=== PATIENT | male | born 1945 | race Caucasian/White ===

== ENCOUNTER 2023-10-20 14:14 | Emergency (ER) | payer MEDICARE, SELFPAY ==
[2023-10-20 14:17] VITALS: BP 154/97; PULSE 80; TEMP 36.8; O2SAT 98; BMI 35.6
--- NOTE | 2023-10-20 14:58 | ED_ITS ---
HPI - Skin/Abscess/Foreign Bdy General Chief complaint: Skin/Abscess/Foreign Body Stated complaint: LACERATION Time Seen by Provider: 10/20/23 14:23 Source: patient and family Mode of arrival: Wheelchair Limitations: no limitations History of Present Illness HPI narrative: 78-year-old male presents to the emergency department with with complaint of bleeding from varicose vein. Locates to his left lower extremity. States he accidentally scratched the area prior to onset of the bleeding. Noted blood to be spurting of 3 to 4 inches in the air. Has had history of similar problem about a year ago. Unsure of last tetanus shot. Denies any pain, tenderness. Currently, bleeding controlled. Quality:?As above Severity:?Mild Timing:?As above, improved Context: Normal setting and activity? Modifying factors:?None Associated symptoms: as above Related Data Allergies Allergy/AdvReac Type Severity Reaction Status Date / Time morphine Allergy Severe Anaphylaxis Verified 10/20/23 14:26 Review of Systems ROS Narrative CONST: Denies diaphoresis, weakness MS: Denies arthralgias, myalgias SKIN:? +wound.? Denies swelling NEURO: Denies weakness, numbness, paresthesias Heme: Patient is on Eliquis Exam Narrative Exam Narrative: Vital signs noted Nurses notes reviewed CONST: Nontoxic, well appearing, well nourished, in no distress.? No diaphoresis.?? HENT: normocephalic, atraumatic, CV: 2+ palpable left DP pulse MS: Left leg: Patient has wound, not actively bleeding to the anterior, distal tibia region. ? No tenderness to the leg.? No swelling, ecchymosis, discoloration, crepitus, deformity, instability, warmth.? Strength 5/5 NEURO: Sensory intact throughout and distal to the injury SKIN: + wound PSYCHIATRIC: normal mood, affect Constitutional Vital Signs, click to edit/add: Last Vital Signs Temp 98.2 F 10/20/23 14:17 Pulse 80 10/20/23 14:17 Resp 18 10/20/23 14:17 BP 154/97 H 10/20/23 14:17 Pulse Ox 98 10/20/23 14:17 O2 Del Method Room Air 10/20/23 14:17 Course Vital Signs Vital signs: Vital Signs Temperature 98.2 F 10/20/23 14:17 Pulse Rate 80 10/20/23 14:17 Respiratory Rate 18 10/20/23 14:17 Blood Pressure 154/97 H 10/20/23 14:17 Pulse Oximetry 98 10/20/23 14:17 Oxygen Delivery Method Room Air 10/20/23 14:17 Temperature 98.2 F 10/20/23 14:17 Pulse Rate 80 10/20/23 14:17 Respiratory Rate 18 10/20/23 14:17 Blood Pressure 154/97 H 10/20/23 14:17 Pulse Oximetry 98 10/20/23 14:17 Oxygen Delivery Method Room Air 10/20/23 14:17 MDM - Skin/Abscess/Foreign Bdy MDM Narrative Medical decision making narrative: This is a pleasant 78-year-old male who presented to the emergency department for evaluation of bleeding from varicose vein. Incident started after he scratched the area this morning. He has currently been able to control the bleeding with compression dressings. Was advised to be evaluated by his provider. He is on Eliquis On arrival, afebrile, vital signs are stable. Exam, nontoxic, well-appearing patient in no distress. He has a wound noted to the distal anterior tibia region. Bleeding controlled at present. Neurovascularly intact. No motor deficits. Area was irrigated, cleansed and multiple layers of Dermabond applied. Hemostasis continue to remain present. Tetanus was updated during visit Favor bleeding from varicose vein Foreign body, deep structure involvement less likely based on history and physical exam Disposition ? The patient was discharged. Plan: Patient will be discharged to home. Condition at time of disposition: stable ? Advised to follow up with primary provider. Advised to return for any worsening and/or development of new, concerning signs or symptoms PLEASE NOTE: Portions of the medical record may have been produced using electronic ekg/ecg technician and may contain errors with respect to translation of words which may not have been identified prior to finalization of the chart. Medical Records Attestation: I reviewed the patient's medical records. 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
--- NOTE | 2023-10-20 14:59 | PC.NURSE ---
dressing removed and area bleeding has resolved. area cleansed with sterile saline and skin adhesive applied to site by PA at bedside.
[2023-10-20] MEDS: ADACEL DIPH,PERTUSS(ACELL),TET VAC/PF 0.5 ML ADULT SYRINGE IM (15:18)
== END 2023-10-20 15:27 | disposition home or self-care (01) ==
PROVIDERS: Emergency Provider Emergency Medicine; PCP Family Medicine
DX: I83.892 Varicose veins of left lower extremity with other complications (principal); S81.802A Unspecified open wound, left lower leg, initial encounter; Z23 Encounter for immunization; X58.XXXA Exposure to other specified factors, initial encounter
CPT/HCPCS: 12001; 90471; 90715; 99283

== ENCOUNTER 2024-08-24 12:01 | Outpatient (OUT) | payer MEDICARE, SELFPAY ==
[2024-08-24 12:55] LABS: Estimated Average Glucose 123 mg/dL; Glycohemoglobin A1C 5.9 % (4.5-6.2)
[2024-08-24 13:00] LABS: Alanine Aminotransferase 17 U/L (16-63); Albumin Globulin Ratio 1.1; Alkaline Phosphatase 61 U/L (46-116); Aspartate Amino Transferase 18 U/L (15-37); BUN Creatinine Ratio 22.3; Bilirubin Total 1.5 mg/dL (0.2-1.0); Calcium 9.4 mg/dL (8.5-10.1); Chloride 102 mmol/L (98-107); Cholesterol 110 mg/dL (<=200); Estimated GFR (African America >60 (>=60 mL/min/1.73m^2); Estimated GFR (Non-African Ame >60 (>=60 mL/min/1.73m^2); Globulin 3.7 g/dL; Glucose 111 mg/dL (74-106); HDL Cholesterol 54 mg/dL (40-60); Sodium 139 mmol/L (136-145); Total Protein 7.7 g/dL (6.4-8.2); Triglycerides 50 mg/dL (<=150)
== END 2024-08-24 12:02 | disposition home or self-care (01) ==
LOC: LAB 12:06
PROVIDERS: PCP Family Medicine; Visit Provider Family Medicine
DX: E78.2 Mixed hyperlipidemia (principal); I10 Essential (primary) hypertension; R73.02 Impaired glucose tolerance (oral)
CPT/HCPCS: 36415; 80053; 80061; 83036

== ENCOUNTER 2024-10-10 11:26 | Emergency (ER) | payer MEDICARE, SELFPAY ==
--- OUTSIDE RECORDS SUMMARY | 2024-09-26 14:15 | XMS_ITS | Encounter Summary ---
Author Organization [facility] Address [address] [place] [address] Care Team Providers Care Thoroughbred Horse Farm Manager Name Role Phone Humberto Holley MD Primary Care Provider [phone] Reason for Visit * Reason Comments Nail care Jaime Ramsey is a 79 y.o. male who presents for Toenail Care. Patient relates he has started wearing compression socks as recommended. Encounter Details Date Type Department Care Team (Latest Contact Info) Description 09/26/2024 2:15 PM EDT Procedure Visit [facility] [address] [place] [id number] Choco Ace, DPJeff [address] [place], [place] [id number] Dermatophytosis of nail (Primary Dx); Dystrophic nail; Pain around toenail, right foot; Pain around toenail, left foot Social History Tobacco Use Types Packs/Day Years Used Date Smoking Tobacco: Former Cigarettes 0.5 13.5 1 04/13/1965 - 08/11/1979 Smokeless Tobacco: Current Chew Alcohol Use Standard Drinks/Week Comments Never 0 (1 standard drink = 0.6 oz pur e alcohol) Sex and Gender Information Value Date Recorded Sex Assigned at Not on file Legal Sex Male 6:52 PM EDT Gender Identity Not on file Sexual Orientation Not on file documented as of this encounter Last Filed Vital Signs Vital Sign Reading Time Taken Comments Blood Pressure - - Pulse - - Temperature - - Respiratory Rate - - Oxygen Saturation - - Inhaled Oxygen Concentration - - Weight 122 kg (268 lb) 09/26/2024 2:10 PM EDT Height 180.3 cm (5' 11 ) 09/26/2024 2:10 PM EDT Body Mass Index 37.38 09/26/2024 2:10 PM EDT documented in this encounter Patient Instructions * Patient Instructions* Choco Ace DPM - 09/26/2024 2:15 PM EDT As noted documented in this encounter Progress Notes * Choco Ace DPM - 09/26/2024 2:15 PM EDT Images from the original note were not included. Subjective Patient ID: Jaime Ramsey is a 79 y.o. male who presents for Nail care ( Jaime Ramsey is a 79 y.o. male who presents for Toenail Care. Patient relates he has started wearing compression socks as recommended. ). HPI Chief complaint: Toenail deformity and discoloration. Relates longstanding toenail deformity of multiple years duration. Identifies multiple digits. Problematic/symptomatic over the past several weeks or so, again describing pressure discomfort with footwear; in spite of known peripheral neuropathy. Also complains of progressive catching and snagging on clothing, bed sheets etc.. Denies bleeding or drainage. Self care measures are difficult, ineffective and not practical; recently cutting his toe; increasing risk exposure. Family members unable to provide effective care. Palliative care measures provide favorable transient symptom relief. Risk factors: Medical comorbidities. Idiopathic peripheral neuropathy. Eliquis therapy. Visual impairment. Mobility, flexibility and dexterity restraints. Toenail deformity. Digital and/or shoe trauma and related complications. Patient also well satisfied with compression sock therapy. Medications Current Outpatient Medications: Eliquis 5 MG tablet, Take 5 mg by mouth in the morning and 5 mg before bedtime., Disp: , Rfl: hydroCHLOROthiazide (HYDRODiuril) 25 MG tablet, Take 25 mg by mouth Daily, Disp: , Rfl: lovastatin (Mevacor) 10 MG tablet, Take 10 mg by mouth Daily, Disp: , Rfl: olmesartan (BENIcar) 40 MG tablet, Take 40 mg by mouth Daily, Disp: , Rfl: Allergies Morphine Past Surgical History Past Surgical History: Procedure Laterality Date CT GUIDED RADIOFREQUENCY ABLATION 2016 cardiac ablation JOINT REPLACEMENT Knee Replacements Family History Family History Problem Relation Name Age of Onset Early natural Mother Kirk Bland Objective General Examination: GENERAL APPEARANCE: Alert and oriented. Pleasant disposition. Wearing Skechers slip-on footwear. Heis grieving the recent passing of the spouse. Vascular: DORSALIS PEDIS PULSE: bilaterally, 2/4 . POSTERIOR TIBIAL PULSE: bilaterally, 1/4 . TEMPERATURE GRADIENT: warm to slightly cool. EDEMA: Mild, non-pitting edema both ankles. Brawny, with stasis pigmentation and dermatosis; without active dermatitis. CALF: supple, nontender, bilateral. CAPILLARY FILLING TIME(sec): capillary fill intact bilateral digits less than 3 secs . Neurologic: MUSCLE POWER: No focal deficits. TINELS SIGN: Negative along the tarsal canal. SHARP SENSATION: Tactile and soft touch sensation compromised over the digital areas. SEMMES-TERESITA 5.07 MONOFILAMENT: Unable to localize over the digital areas. Intact localization over the forefoot, midfoot and heel areas bilateral. Dermatologic: SKIN FINDINGS: Intact. Skin turgor is fair. HYPERTROPHIC LESION: Prominent pinch callus lesion along the distal medial aspect of the left greattoenail. Non-inflamed, without ulcerative changes. 2nd digit left foot: Non-inflamed distal HD lesion, without ulcerative changes. NAIL PATHOLOGY: All digits: None are spared: Gross toenail dystrophy, hypertrophy, thickening, elongation, discoloration, clubbing, crumbly texture, subtotal detachment, periungual hyperkeratosis; without drainage. Total with debris: Essentially all digits. Left great toe: Sarabjit's horn toenail deformity by history. INTERDIGITAL MACERATION: Clean, dry, non-inflamed. ULCER: no sign of ulceration or open wound . ABSCESS: . SKIN PATHOLOGY: texture, turgor, hair growth, within normal limits. Ankle / Foot: INSPECTION: Stance assessment: Symmetrical, fairly rectus cavus foot structure. Rigid contracture of multiple digits. RANGE OF MOTION: Demonstrates functional ankle, subtalar and MTP joint range of motion. 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 Chronic venous insufficiency with chronic stasis dermatosis. Idiopathic peripheral neuropathy. Lumbar radiculopathy? Plan: Patient remains well satisfied with conservative and palliative care measures. Encourage compliance with compression sock therapy. Continue Amlactin lotion daily to lower extremities and feet. Hygiene and skin care measures discussed. Continue crest pad therapy left foot as needed Procedure: Toenail debridement: Aseptic technique: Hand and power instrumentation: Onychodebridement in length and thickness, with curettage of any cryptotic margins, all periungual debris; providingeffective symptom and pressure relief; reducing shoe and digital trauma. This note was created with the assistance of a speech recognition program. While intending to generate a timely document that accurately reflects the content of the visit, no guarantee can be provided that every grammatical or spelling mistake has been or will be identified or corrected. Thank you for your understanding. Choco Ace DPM documented in this encounter Plan of Treatment Upcoming Encounters Date Type Department Care Team (Late st Contact Info) Description 01/09/2025 2:15 PM EDT Procedure Visit [facility] [address] [place] [address] Choco Ace DPM [address] [place], [place] [id number] documented as of this encounter Visit Diagnoses Diagnosis Dermatophytosis of nail- Primary Dystrophic nail Other specified disease of nail Pain around toenail, right foot Pain around toenail, left foot documented in this encounter Care Teams Thoroughbred Horse Farm Manager Relationship Specialty Start Date End Date Humberto Holley MD [address] [facility] [place] [address] PCP - General Family Medicine 09/26/24 documented as of this encounter
--- OUTSIDE RECORDS SUMMARY | 2024-10-10 11:31 | XMS_ITS | Encounter Summary ---
Author Organization [facility] Address [id number] [address] [place] [address] Care Team Providers Care Tractor Mechanic Apprentice Name Role Phone YulisaHumberto shipman Kai ROSS Primary Care Provider [phone] Encounter Details Date Type Department Care Team (Late st Contact Info) Description 08/12/2022 Orders Only [facility] - Family Medicine [address] [place] [address] External, Scanning Provider Social History Tobacco Use Types Packs/Day Years Used Date Smoking Tobacco: Former Smokeless Tobacco: Current Chew Alcohol Use Standard Drinks/Week Comments Not Currently 0 (1 standard drink = 0.6 oz pur e alcohol) Social Connection and Isolat ion Panel [NHANES] Answer Date Recorded In a typical week, how many times do you talk on the phone with family, friends, or neighbors? More than three times a week 03/23/2022 How often do you get togethe r with friends or relatives? More than three times a week 03/23/2022 How often do you attend chur ch or mosque services? Never 03/23/2022 Do you belong to any clubs o r organizations such as samaritan groups, unions, fraternal or athletic groups, or school groups? Yes 03/23/2022 How often do you attend meet ings of the clubs or organizations you belong to? More than 4 times per year 03/23/2022 Are you , , di vorced, , never , or living with a partner? 03/23/2022 AUDIT-C Answer Date Recorded Q1: How often do you have a drink containing alc ohol? Monthly or less 03/23/2022 Q2: How many drinks containi ng alcohol do you have on a typical day when you are drinking? 1 or 2 03/23/2022 Q3: How often do you have si x or more drinks on one occasion? Never 03/23/2022 Overall Financial Resource Strain (CARDIA) Answe r Date Recorded How hard is it for you to pa y for the very basics like food, housing, medical care, and heating? Not hard at all 03/26/2022 PHQ-2 Answer Date Recorded Total Score 2 06/12/2022 [facility] Occupat ional Health - Occupational Stress Questionnaire Answer Date Recorded Do you feel stress - tense, restless, nervous, or anxious, or unable to sleep at night because your mind is troubled all the time - these days? To some extent 03/23/2022 Exercise Vital Sign Answer Date Recorde d On average, how many days pe r week do you engage in moderate to strenuous exercise (like a brisk walk)? 1 day 03/23/2022 On average, how many minutes do you engage in exercise at this level? 10 min 03/23/2022 PRAPARE - Transportation Answer Date Re corded In the past 12 months, has l ack of transportation kept you from medical appointments or from getting medications? No 02/28 In the past 12 months, has l ack of transportation kept you from meetings, work, or from getting things needed for daily living? No 03/23/2022 Childcare Answer Date Recorded Do problems getting child ca re make it difficult for you to work or study? No 03/23/2022 Employment Answer Date Recorded Do you need help finding a l ocal career center and/or a training program? No 03/23/2022 Purpose - Life Answer Date Recorded I have a purpose and direction in my life. Timothy coronel Agree nor Disagree 03/23/2022 Education Answer Date Recorded What is the highest level of school you have completed or the highest degree you have received? 12th grade 03/23/2022 Sex and Gender Information Value Date Recorded Sex Assigned at Not on file Legal Sex Male 11:46 AM EDT Gender Identity Not on file Sexual Orientation Not on file documented as of this encounter Plan of Treatment Upcoming Encounters Date Type Department Care Team (Late st Contact Info) Description 10/11/2024 9:40 AM EDT Office Visit [facility] Medicine [address] [place] [address] 02/27/2025 10:00 AM EST Office Visit [facility] [address] [place] [address] Humberto Holley DO [address] [place] [address] documented as of this encounter Procedures Procedure Name Priority Date/Time Associated Diagnosis Comments STATIC LUNG VOLUMES PLETHYSMOGRAPHY Routine 08/12/2022 documented in this encounter Results * Static lung volumes/Plethysmography (08/12/2022) us Scanning Provider External PFT ORDERABLES Final Result MANUALLY TRANSCRIBED RESULTS documented in this encounter Visit Diagnoses Not on filedocumented in this encounter Additional Health Concerns Assessment Noted Time PHQ-9 Depression Total Score: 2 06/13/19 23 2:09 PM EDT documented as of this encounter Care Teams Tractor Mechanic Apprentice Relationship Specialty Start Date End Date Humberto Holley DO [address] [facility] [place] [address] PCP - General Family Medicine 07/08/18 documented as of this encounter
--- OUTSIDE RECORDS SUMMARY | 2024-10-10 11:31 | XMS_ITS | Encounter Summary ---
Author Organization [facility] Address [id number] [address] [place] [address] Care Team Providers Care Gear Design Engineer Name Role Phone Humberto Holley DO Primary Care Provider + [phone] Encounter Details Date Type Department Care Team (Late st Contact Info) Description 07/08/2023 Orders Only [facility] - Family Medicine [address] [place] [address] Humberto Holley DO [address] [place] [address] Other persistent atrial fibrillation ([facility]) Social History Tobacco Use Types Packs/Day Years [...] often do you attend chur ch or christianity services? Never 03/23/2022 Do you belong to any clubs o r organizations such as buddhism groups, unions, fraternal or athletic groups, or [...] 03/26/2022 PHQ-2 Answer Date Recorded Total Score 0 12/29/2022 [facility] ional Health - Occupational Stress Questionnaire Answer Date Recorded Do you feel stress - tense, restless, nervous, or anxious, or unable to sleep at night because your mind is troubled all the time - these days? Only a little 09/18/2022 Exercise Vital Sign Answer Date Recorde d On average, how many days pe r week do you engage in moderate to strenuous exercise (like a brisk walk)? 0 days 09/18/2022 On average, how many minutes do you engage in exercise at this level? 0 min 09/18/2022 PRAPARE - Transportation Answer Date Re corded [...] Recorded Do you need help finding a [facility] and/or a training program? No 03/23/2022 Hunger Screening Answer Date Recorded Within the past 12 months we worried whether our food would run out before we got money to buy more. Never True 12/29/2022 Within the past 12 months th e food we bought just didn't last and we didn't have money to get more. Never True 12/29/2022 Purpose - Life Answer Date Recorded I have a purpose and direction in my life. Neith er Agree nor Disagree 03/23/2022 Education Answer Date [...] Medicine - Family Medicine [address] [place] [address] 02/27/2025 10:00 AM EST Office Visit [facility] - Family Medicine [address] [place] [address] uHmberto Holley DO [address] [facility] [place] [address] documented as of this encounter Visit Diagnoses Diagnosis Other persistent atrial fibrillation ([facility]) documented in this encounter Additional Health Concerns Assessment Noted Time PHQ-9 Depression Total Score: 0 12/30/19 23 2:44 PM EDT documented as of this encounter Care Teams Gear Design Engineer Relationship Specialty Start Date End Date Humberto Holley DO [address] [facility] [place] [address] PCP - General Family Medicine 07/08/18 documented as of this encounter
--- OUTSIDE RECORDS SUMMARY | 2024-10-10 11:31 | XMS_ITS | Encounter Summary ---
Author Organization [facility] tem Address [id number] [address] [place] [address] Care Team Providers Care Ship'S Cook Name Role Phone Humberto Holley Primary Care Provider + [phone] Encounter Details Date Type Department Care Team (Late st Contact Info) Description 08/25/2024 Orders Only [facility] Internal [facility] - Family Medicine [address] [facility] [place] [address] Ashley Haas CMA Impaired glucose tolerance; Mixed hyperlipidemia; Essential hypertension Social History Tobacco Use Types Packs/Day Years Used Date Smoking Tobacco: Former Smokeless Tobacco: Current Chew Alcohol Use Standard Drinks/Week Comments Not Currently 0 (1 standard drink = 0.6 oz pur e alcohol) [facility] Utilities Answer Date Recorded In the past 12 months has [employer] electric, gas, oil, or water company threatened to shut off services in your home? No 10/08/2023 Social Connection and Isolat ion Panel [NHANES] Answer Date Recorded In a typical week, how many times do you talk on the phone with family, friends, or neighbors? More than three times a week 03/23/2022 How often do you get togethe r with friends or relatives? More than three times a week 03/23/2022 How often do you attend chur ch or orthodox services? Never 03/23/2022 Do you belong to any clubs o r organizations such as orthodoxy groups, unions, fraternal or athletic groups, or [...] food, housing, medical care, and heating? Not very hard 08/03/2023 PHQ-2 Answer Date Recorded Total Score 0 08/24/2024 [facility] Occupat ional Health - Occupational Stress [...] exercise (like a brisk walk)? 0 days 10/08/2023 On average, how many minutes do you engage in exercise at this level? 0 min 10/08/2023 PRAPARE - Transportation Answer Date Re corded In the past 12 months, has l ack of transportation kept you from medical appointments or from getting medications? No 08/2023 In the past 12 months, has l ack of transportation kept you from meetings, work, or from getting things needed for daily living? No 08/03/2023 Housing Instability Answer Date Recorde d Are you worried or concerned that in the next two months you may not have stable housing that you own, rent or stay in as a part of a household? No 08/03/2023 Childcare Answer Date Recorded Do problems getting child ca re make it difficult for you to work or study? No 03/23/2022 Employment Answer Date Recorded Do you need help finding a [facility] career center and/or a training program? No 03/23/2022 Hunger Screening Answer Date Recorded Within the past 12 months we worried whether our food would run out before we got money to buy more. Never True 08/24/2024 Within the past 12 months th e food we bought just didn't last and we didn't have money to get more. Never True 08/24/2024 Purpose - Life Answer Date Recorded I [...] Description 10/11/2024 9:40 AM EDT [facility] [address] [place] [address] 02/27/2025 10:00 AM EST [facility] [address] [place] [address] Humberto Holley, DO [address] [facility] [place] [address] documented as of this encounter Procedures Procedure Name Priority Date/Time Associated Diagnosis Comments HEMOGLOBIN A1C Routine 08/24/2024 Impaired glucose tolerance LIPID PROFILE Routine 08/24/2024 Mixed hyperlipidemia COMPREHENSIVE METABOLIC PANEL Routine 08/24/2024 Essential hypertension documented in this encounter Results * Comprehensive metabolic panel (08/24/2024) External Albumin 4.0 MAN UALLY TRANSCRIBED RESULTS External Alt Sgpt 17 MANUALLY TRANSCRIBED RESULTS External Anion Gap 10.0 MANUALLY TRANSCRIBED RESULTS External Ast 18 MANUALL Y TRANSCRIBED RESULTS External Blood Urea Nitrogen Bun 25.0 MANUALLY TRANSCRIBED RESULTS External Calcium Ca 9.4 MANUALLY TRANSCRIBED RESULTS External Chloride 102 MANUALLY TRANSCRIBED RESULTS External Co2 / Carbon Dioxide 31.0 MANUALLY TRANSCRIBED RESULTS External Creatinine 1.12 MANUALLY TRANSCRIBED RESULTS External Gfr Amer >60 MANUALLY TRANSCRIBED RESULTS External Gfr Non Amer >60 MANUALLY TRANSCRIBED RESULTS External Alkaline Phosphatase 61 MANUALLY TRANSCRIBED RESULTS External Glucose Fasting Or Random (Fbs) 111 MANUALLY TRANSCRIBED RESULTS External Potassium K 4.0 MANUALLY TRANSCRIBED RESULTS External Sodium Na 139 MANUALLY TRANSCRIBED RESULTS Total Bilirubin 1.5 MANU ALLY TRANSCRIBED RESULTS External Total Protein 7.7 MANUALLY TRANSCRIBED RESULTS Blood Venous blood / Unknown 08/24/2024 Humberto Kai Márquezbillochoa DO LAB BLOOD ORDERABLES Final R esult Performing Organization Address [facility] Co de Phone Number MANUALLY TRANSCRIBED RESULTS * Lipid profile (08/24/2024) External Cholesterol 110 MANUALLY TRANSCRIBED RESULTS External Cholesterol:Hdl 54 MANUALLY TRANSCRIBED RESULTS External Ldl (Calc) 46.0 MANUALLY TRANSCRIBED RESULTS External Triglycerides 50 MANUALLY TRANSCRIBED RESULTS Blood Venous blood / Unknown 08/24/2024 Humberto Kai Márquezbillochoa DO LAB BLOOD ORDERABLES Final R itsDapperult Performing Organization Address [facility] Co de Phone Number MANUALLY TRANSCRIBED RESULTS * Hemoglobin A1c (08/24/2024) External Hemoglobin A1C 5.9 % MANUALLY TRANSCRIBED RESULTS Blood Venous blood / Unknown 08/24/2024 Humberto Kai Márquezbillochoa DO LAB BLOOD ORDERABLES Final R esult Performing Organization Address [facility] Co de Phone Number MANUALLY TRANSCRIBED RESULTS documented in this encounter Visit Diagnoses Diagnosis Impaired glucose tolerance Impaired glucose tolerance test Mixed hyperlipidemia Essential hypertension Unspecified essential hypertension documented in this encounter Additional Health Concerns Assessment Noted Time PHQ-9 Depression Total Score: 0 08/25/19 25 8:27 AM EDT documented as of this encounter Care Teams Ship'S Cook Relationship Specialty Start Date End Date Humberto Holley DO [address] [facility], [place] [address] PCP - General Family Medicine 07/08/18 documented as of this encounter
--- OUTSIDE RECORDS SUMMARY | 2024-10-10 11:31 | XMS_ITS | Encounter Summary ---
Author Organization [employer] tem Address [id number] [address] [place] [address] Care Team Providers Care Freight Engineer Name Role Phone Humberto Holley Primary Care Provider + [phone] Reason for Visit * Reason Comments Med Refill Encounter Details Date Type Department Care Team (Late st Contact Info) Description 02/24/2021 Refill [facility] [address] [place] [id number] Debbie Milian MD [address] [place] [facility] [place] [address] Med Refill Social History Tobacco Use Types Packs/Day Years Used Date Smoking Tobacco: Former Smokeless Tobacco: Former Chew Alcohol Use Standard Drinks/Week Comments No 0 (1 standard drink = 0.6 oz pur e alcohol) Childcare Answer Date Recorded Childcare Unknown 08/27/2018 Employment Answer Date Recorded Employment Unknown 08/27/2018 Purpose - Life Answer Date Recorded Purpose and direction in life Unknown Sex and Gender Information Value Date Recorded Sex Assigned at Not on file Legal Sex Male 11:46 AM EDT Gender Identity Not on file Sexual Orientation Not on file documented as of this encounter Miscellaneous Notes * Telephone Encounter - Alicia Weaver LPN - 02/24/2021 9:42 AM EST CBC and CMP needed/ pended. Appt needed. Last seen in office 02/22/2020. Letter mailed to home. documented in this encounter Plan of Treatment Upcoming Encounters Date Type Department Care Team (Late st Contact Info) Description 10/11/2024 9:40 AM EDT Office Visit [facility] - Family Medicine [address] [place] [address] 02/27/2025 10:00 AM EST Office Visit [facility] - Family Medicine [address] [place] [address] Humberto Holley DO [address], [place] [address] documented as of this encounter Visit Diagnoses Diagnosis Other persistent atrial fibrillation ([facility]) documented in this encounter Care Teams Freight Engineer Relationship Specialty Start Date End Date Humberto Holley DO [address] [place] [address] PCP - General Family Medicine 07/08/18 documented as of this encounter
--- OUTSIDE RECORDS SUMMARY | 2024-10-10 11:31 | XMS_ITS | Encounter Summary ---
Author Organization [employer] Address [id number] [address] [place] [address] Care Team Providers Care Quality Control Projectionist Name Role Phone Humberto Holley DO Primary Care Provider + [phone] Reason for Visit * Reason Onset Date Comments Med Refill 09/18/2022 Encounter Details Date Type Department Care Team (Late st Contact Info) Description 09/18/2022 Refill [facility] Medicine - Family Medicine [address] [place] [address] Humberto Holley DO [address], [facility] [place], [place] [id number] Social History Tobacco Use Types Packs/Day Years [...] often do you attend chur ch or congregation services? Never 03/23/2022 Do you belong to any clubs o r organizations such as cheondoism groups, unions, fraternal or athletic groups, or [...] PHQ-2 Answer Date Recorded Total Score 0 09/18/2022 [facility] of Occupat ional Health - Occupational Stress [...] Medicine - Family Medicine [address] [place] [address] 02/27/2025 10:00 AM EST Office Visit [facility] - Family Medicine [address] [place] [address] Humberto Holley DO [address] [facility] [place] [address] documented as of this encounter Visit Diagnoses Not on filedocumented in this encounter Additional Health Concerns Assessment Noted Time PHQ-9 Depression Total Score: 0 09/19/19 23 11:44 AM EDT documented as of this encounter Care Teams Quality Control Projectionist Relationship Specialty Start Date End Date Humberto Holley DO [address] [facility] [place] [address] PCP - General Family Medicine 07/08/18 documented as of this encounter
--- OUTSIDE RECORDS SUMMARY | 2024-10-10 11:31 | XMS_ITS | Encounter Summary ---
Author Organization [facility] [facility] tem Address [facility] [id number] [address] [place] [address] Care Team Providers Care Instructor Modeling Name Role Phone Humberto Holley DO Primary Care Provider [phone] Encounter Details Date Type Department Care Team ([facility] Contact Info) Description 05/31/2021 Orders Only [facility] [address] [place] [phone] External, Scanning Provider Social History Tobacco Use Types Packs/Day Years Used Date Smoking Tobacco: Former Smokeless Tobacco: Current Chew Alcohol Use Standard Drinks/Week Comments Yes 0 (1 standard drink = 0.6 oz [...] Upcoming Encounters Date Type Department Care Team ([facility] Contact Info) Description 10/11/2024 9:40 AM EDT Office Visit [facility] Medicine - Family Medicine [address] [place] [address] 02/27/2025 10:00 AM EST Office Visit [facility] Medicine - Family Medicine [address] [place] [address] Humberto Holley DO [address], [place] [address] documented as of this encounter Procedures Procedure Name Priority Date/Time Associated Diagnosis Comments MULTIPLE LABS Routine 03/04/2021 MULTIPLE LABS Routine 01/26/2021 LIPID PROFILE Routine 01/26/2021 documented in this encounter Results * Multiple labs (03/04/2021) us Scanning Provider External CO IMAGING Final Result Performing Organization Address [facility] de Phone Number MANUALLY TRANSCRIBED RESULTS * Lipid profile (01/26/2021) External Cholesterol 120 MANUALLY TRANSCRIBED RESULTS External Cholesterol:Hdl 3.3 MANUALLY TRANSCRIBED RESULTS External Hdl Cholesterol 36 MANUALLY TRANSCRIBED RESULTS External Ldl (Calc) 61 MANUALLY TRANSCRIBED RESULTS External Triglycerides 150 MANUALLY TRANSCRIBED RESULTS us Scanning Provider External LAB BLOOD ORDERABLES Edited Result - Final Performing Organization Address [facility] de Phone Number MANUALLY TRANSCRIBED RESULTS * Multiple labs (01/26/2021) us Scanning Provider External CO IMAGING Final Result Performing Organization Address [facility] de Phone Number MANUALLY TRANSCRIBED RESULTS documented in this encounter Visit Diagnoses Not on filedocumented in this encounter Care Teams Instructor Modeling Relationship Specialty Start Date End Date Humberto Holley DO [address] [place] [address] PCP - General Family Medicine 07/08/18 documented as of this encounter
--- OUTSIDE RECORDS SUMMARY | 2024-10-10 11:31 | XMS_ITS | Clinical Summary ---
Author Organization [employer] tem Address [id number] [address] [place] [address] Care Team Providers Care Stenciling Machine Tender Name Role Phone Humberto Holley Primary Care Provider [phone] Allergies Active Allergy Reactions Criticality Noted Date Comments Morphine Shortness Of Breath High 07/09/2016 Other reaction(s): Bradypnea (slow breathing rate) Other reaction(s): Bradypnea (slow breathing rate) Medications olmesartan (BENICAR) 40 mg tablet TAKE 1 TABLET BY MOUTH DAILY 90 tablet 5 Active hydroCHLOROthiazi de (HYDRODIURIL) 25 mg tablet TAKE 1 TABLET BY MOUTH DAILY 90 tablet 5 Active lovastatin (MEVACOR) 10 mg tablet TAKE 1 TABLET BY MOUTH DAILY 90 tablet 5 Active ELIQUIS 5 mg tabletIndications :Other persistent atrial fibrillation (CMS-HCC) TAKE 1 TABLET BY MOUTH EVERY MORNING & AT BEDTIME 180 tablet 1 5 Active Active Problems Problem Noted Date Diagnosed Date Stage 2 chronic kidney disease due to benign hyp ertension 09/24/2022 Gynecomastia 06/12/2022 Intertrigo 06/12/2022 Closed compression fracture of body of L1 verteb ra 03/26/2022 Acquired hammer toe of left foot 02/03/2022 Hereditary and idiopathic neuropathy, unspecifie d 02/03/2022 Hyperlipidemia 02/03/2022 Impaired glucose tolerance 02/03/2022 Kidney stone 02/03/2022 Onychomycosis 02/03/2022 Osteoarthritis 02/03/2022 GRICELDA (obstructive sleep apnea) 10/23/2021 Carpal tunnel syndrome 11/13/2020 Class 2 obesity in adult 02/22/2020 Numbness of hand 11/13/2018 Overview (08/10/2023): right hand Diverticulosis of colon 08/28/2018 Polyp of ascending colon 08/25/2018 Diverticulosis of large intestine without hemorr doreen 08/25/2018 Diverticulosis of large intestine without hemorr doreen 08/25/2018 Personal history of colonic polyps 08/13/2018 Overview (12/29/2023): Replacing Diagnosis that were inactivated after 12/28 regulatory import Sick sinus syndrome 07/08/2018 Short of breath on exertion 07/08/2018 Vitamin D deficiency 06/11/2018 Hypokalemia 04/28/2018 Typical atrial flutter s/p ablation 08/2016 Morbid obesity 03/29/2018 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 Stasis dermatitis 09/25/2017 Varicose veins of lower extremity 09/25/2017 Status post placement of implantable loop record er 10/15/2016 Other persistent atrial fibrillation 10/15/2016 Essential hypertension 10/15/2016 Left flank pain 09/06/2015 Tubular adenoma of colon 06/02/2012 Resolved Problems Problem Noted Date Diagnosed Date Resolved Date Mild major depression 03/26/20222022 Constipation 08/13/2018 08/10/2023 Stage 3 chronic kidney disease 04/28/2018 09/24/2022 BMI 40.0-44.9, adult 03/29/2018 021 Encounters Date Type Department Care Team Description 08/25/2024 Orders Only [facility] - Family Medicine [address] [place] [address] Ashley Haas CMA Impaired glucose tolerance; Mixed hyperlipidemia; Essential hypertension 08/24/2024 8:30 AM EDT Office Visit [facility] - Family Medicine [address] [place] [address] Humberto Holley DO Stage 2 chronic kidney disease due to benign hypertension (Primary Dx); Impaired glucose tolerance; Mixed hyperlipidemia; Hypokalemia; Paroxysmal atrial fibrillation ([facility]); Peripheral axonal neuropathy; GRICELDA (obstructive sleep apnea); Essential hypertension; Lumbar spondylosis 08/24/2024 Travel 08/23/2024 Refill [facility] - [facility] [address] [place] [address] Humberto Holley, DO Other persistent atrial fibrillation ([facility]) 08/18/2024 Refill [facility] - [facility] [address] [place] [address] Humberto Holley, from Last 3 Months Immunizations Immunization Administration Dates Next Due COVID-19, mRNA, LNP-S, PF, 3 0mcg/0.3mL Dose 06/19/2020,06/18/2020 Covid-19, Mrna, Lnp-s, Bival ent, Pf, 30mcg/0.3 ml 01/21/2022 Influenza Vaccine, Quadrival ent, Adjuvanted 01/20/2023,01/21/2022,12/02/2020,12/14 Influenza, Injectable, Mdck, Preservative Free, Quad 01/18/2019,04/26/2018,03/13/2017 Influenza, Injectable, quadr ivalent (PF) 12/15/2019 Influenza, Unspecified 01/21/2022,04/26/2018,12/2017 Pneumococcal Conjugate 13-Valent 07/11/2014 Pneumococcal Polysaccharide 08/28/2016 SARS-COV-2 (COVID-19) Vaccin e, Unspecified 01/21/2022 Tdap 09/01/2021,02/16/2012 Zoster Vaccine Recombinant 03/26/2019,01/18/2019 Family History Medical History Relation Name Comments Atrial fibrillation Brother No Known Problems Father Heart disease Mother Sleep apnea Mother Atrial fibrillation Sister Breast cancer Sister Relation Name Status Comments Brother Father Mother Sister Social History Tobacco Use Types Packs/Day Years Used Date Smoking Tobacco: Former Smokeless Tobacco: Current Chew Tobacco Cessation:Ready to Q uit: Not Asked; Counseling Given: Not Answered Alcohol Use Standard Drinks/Week Comments Not Currently 0 (1 standard drink = 0.6 oz pur e alcohol) [facility] Utilities Answer Date Recorded In the past 12 months has th e electric, gas, oil, or water company threatened [...] often do you attend chur ch or congregational services? Never 03/23/2022 Do you belong to any clubs o r organizations such as episcopal groups, unions, fraternal or athletic groups, or [...] Answer Date Recorded Total Score 0 08/24/2024 [facility] of Occupat ional Health - Occupational Stress [...] Recorded Do you need help finding a [facility] career center and/or a training program? No [...] a purpose and direction in my life. Gracieith er Agree nor Disagree 03/23/2022 Education Answer Date Recorded What is the highest level of school you have completed or the highest degree you have received? 12th grade 03/23/2022 Sex and Gender Information Value Date Recorded Sex Assigned at Not on file Legal Sex Male 11:46 AM EDT Gender Identity Not on file Sexual Orientation Not on file Last Filed Vital Signs Vital Sign Reading Time Taken Comments Blood Pressure 126/70 08/24/2024 8:29 AM EDT Pulse 56 08/24/2024 8:29 AM EDT Temperature 36.4 C (97.5 F) 08/24/2024 8:29 AM EDT Respiratory Rate 20 08/24/2024 8:29 AM EDT Oxygen Saturation 96% 08/24/2024 8:29 AM EDT Inhaled Oxygen Concentration - - Weight 122 kg (268 lb 14.4 oz) 08/24/2024 8:29 A M EDT Height 177.8 cm (5' 10 ) 08/24/2024 8:29 AM EDT Body Mass Index 38.58 08/24/2024 8:29 AM EDT Plan of Treatment Upcoming Encounters Date Type Department Care Team (Late st Contact Info) Description 10/11/2024 9:40 AM EDT Office Visit [facility] - Family Medicine [address] [place] [address] 02/27/2025 10:00 AM EST Office Visit [facility] - Family Medicine [address] [place] [address] Humberto Holley, DO [address], [place] [address] Health Maintenance Due Date Last Done Comments Tobacco Counseling 1945 Abdominal Aortic Aneurysm (A AA) Screen 2012 COVID-19 Vaccine (9 - 2023-2 5 season) 2024 01/26/2024, 01/20/2023, 01/21/2022, Additional history exists Medicare Annual Wellness Visit 10/07/2024 10/08/2023 , 09/18/2022 Influenza Vaccine 11/28/2024 01/26/2024, , 01/21/2022, Additional history exists Depression Screening 08/24/2025 08/24/2024 Fall Risk Screening 08/24/2025 08/24/2024 Tobacco Screening 08/24/2025 08/24/2024 DTaP,Tdap and Td Vaccines (4 - Td or Tdap) 10/19/2033 10/20/2023, 09/01/2021, 02/16/2012 Zoster (Shingles) Vaccine Completed 03/26/2019, Medical Devices Not on file Procedures Procedure Name Priority Date/Time Associated Diagnosis Comments COMPREHENSIVE METABOLIC PANEL Routine 08/24/2024 Essential hypertension LIPID PROFILE Routine 08/24/2024 Mixed hyperlipidemia HEMOGLOBIN A1C Routine 08/24/2024 Impaired glucose tolerance from Last 3 Months Results * Hemoglobin A1c (08/24/2024) Pathologist [facility] External Hemoglobin A1C 5.9 % MANUALLY TRANSCRIBED RESULTS Blood Venous blood / Unknown 08/24/2024 Humberto Flores DO LAB BLOOD ORDERABLES [facility] Performing Organization Address [facility] Co de Phone Number MANUALLY TRANSCRIBED RESULTS * Lipid profile (08/24/2024) Pathologist [facility] External Cholesterol 110 MANUALLY TRANSCRIBED RESULTS External Cholesterol:Hdl 54 MANUALLY TRANSCRIBED RESULTS External Ldl (Calc) 46.0 MANUALLY TRANSCRIBED RESULTS External Triglycerides 50 MANUALLY TRANSCRIBED RESULTS Blood Venous blood / Unknown 08/24/2024 [facility]LOOD ORDERABLES Final R [facility] hospital Performing Organization Address [facility] de Phone Number MANUALLY TRANSCRIBED RESULTS * Comprehensive metabolic panel (08/24/2024) Pathologist [facility] External Albumin 4.0 MAN UALLY TRANSCRIBED RESULTS [...] Blood Venous blood / Unknown 08/24/2024 Humberto Flores DO LAB BLOOD ORDERABLES Final R psychiatric hospital Performing Organization Address [facility] Co de Phone Number MANUALLY TRANSCRIBED RESULTS from Last 3 Months Insurance [employer] MEDIC[employer] Care Teams Stenciling Machine Tender Relationship Specialty Start Date End Date Humberto Holley DO [address] [place] [address] PCP - General Family Medicine 07/08/18
--- OUTSIDE RECORDS SUMMARY | 2024-10-10 11:31 | XMS_ITS | Encounter Summary ---
Author Organization [facility] tem Address [id number] [address] [place] [address] Care Team Providers Care Polymerization Helper Name Role Phone Humberto Holley Primary Care Provider + [phone] Encounter Details Date Type Department Care Team (Late st Contact Info) Description 09/24/2022 Orders Only [facility] - Family Medicine [address] [place] [address] Ref Prov, [place] [address] Social History Tobacco Use Types Packs/Day Years [...] often do you attend chur ch or moravian services? Never 03/23/2022 Do you belong to any clubs o r organizations such as oriental orthodox groups, unions, fraternal or athletic groups, or [...] PHQ-2 Answer Date Recorded Total Score 0 09/24/2022 [facility] - Occupational Stress Questionnaire Answer Date Recorded [...] - Family Medicine [address] [place] [address] 02/27/2025 10:00 AM EST Office Visit [facility] Internal Medicine - Family Medicine [address] [place] [address] Humberto Holley, DO [address], [place] [address] documented as of this encounter Procedures Procedure Name Priority Date/Time Associated Diagnosis Comments COLONOSCOPY Routine 08/25/2018 COLONOSCOPY Routine 08/25/2018 HEPATITIS C(HCV) ANTIBODY W/ REFLEX TO PCR Routine 12/07/2015 HCV RNA QUANT PCR Routine 12/06/2015 documented in this encounter Results * COLONOSCOPY (08/25/2018) us Santo Nadja Ronal DO HEALTH MAINTENANCE Final Result Performing Organization Address [facility] Co de Phone Number MANUALLY TRANSCRIBED RESULTS * COLONOSCOPY (08/25/2018) us Not In System Ref Prov HEALTH MAINTENANCE Final Result Performing Organization Address [facility] Co de Phone Number MANUALLY TRANSCRIBED RESULTS * Hepatitis C(HCV) Ab w/ Reflex to PCR (12/07/2015) us Humberto Holley DO LAB BLOOD ORDERABLES Final R esult Performing Organization Address [facility] Co de Phone Number MANUALLY TRANSCRIBED LAB RESULTS * HCV RNA Quant PCR (12/06/2015) us Not In System Ref Prov LAB BLOOD ORDERABLES Madeleine l Result Performing Organization Address [facility] Co de Phone Number MANUALLY TRANSCRIBED LAB RESULTS documented in this encounter Visit Diagnoses Not on filedocumented in this encounter Additional Health Concerns Assessment Noted Time PHQ-9 Depression Total Score: 0 09/25/19 23 11:12 AM EDT documented as of this encounter Care Teams Polymerization Helper Relationship Specialty Start Date End Date Humberto Holley DO [address], [place] [address] PCP - General Family Medicine 07/08/18 documented as of this encounter
--- OUTSIDE RECORDS SUMMARY | 2024-10-10 11:32 | XMS_ITS | Encounter Summary ---
Author Organization [employer] [facility] tem Address [id number] [address] [place] [address] Care Team Providers Care Neighborhood Planner Name Role Phone Humberto Holley DO Primary Care Provider + [phone] Reason for Visit * Reason Comments Med Refill Encounter Details Date Type Department Care Team (Late Contact Info) Description 05/12/2022 Refill [facility] Internal Medicine - Family Medicine [address] [place] [address] Humberto Holley DO [address], [facility] [place] [address] Other persistent atrial fibrillation ([facility]) Social History Tobacco Use Types Packs/Day Years [...] often do you attend chur ch or yarsanism services? Never 03/23/2022 Do you belong to any clubs o r organizations such as buddhist groups, unions, fraternal or athletic groups, or [...] 03/26/2022 PHQ-2 Answer Date Recorded Total Score 7 03/23/2022 [facility] - Occupational [...] Medicine - Family Medicine [address] [place] [address] 02/27/2025 10:00 AM EST Office Visit [facility] Internal Medicine - Family Medicine [address] [place] [address] Humberto Holley DO [address] [facility] [place] [address] documented as of this encounter Visit Diagnoses Diagnosis Other persistent atrial fibrillation ([facility]) documented in this encounter Additional Health Concerns Assessment Noted Time PHQ-9 Depression Total Score: 7 03/23/20 22 11:56 AM EST documented as of this encounter Care Teams Neighborhood Planner Relationship Specialty Start Date End Date Humberto Holley DO [address] [place] [address] PCP - General Family Medicine 07/08/18 documented as of this encounter
--- OUTSIDE RECORDS SUMMARY | 2024-10-10 11:32 | XMS_ITS | Encounter Summary ---
Author Organization [employer] [facility] tem Address [id number] [address] [place] [address] Care Team Providers Care Electrical Construction Project Manager Name Role Phone Humberto Holley DO Primary Care Provider + [phone] Reason for Visit * Reason Comments Med Refill Encounter Details Date Type Department Care Team (Late st Contact Info) Description 05/09/2022 Refill [facility] Internal Medicine - Family Medicine [address] [place] [address] Humberto Holley DO [address], [facility] [place] [address] Social History Tobacco Use Types Packs/Day Years [...] often do you attend chur ch or mandaeism services? Never 03/23/2022 Do you belong to any clubs o r organizations such as rastafari groups, unions, fraternal or athletic groups, or [...] Answer Date Recorded Total Score 7 03/23/2022 [facility] - Occupational Stress [...] purpose and direction in my life. Timothy coronle Agree nor Disagree 03/23/2022 Education Answer Date [...] Medicine - Family Medicine [address] [place] [address] 02/27/2025 10:00 AM EST Office Visit [facility] Internal Medicine - Family Medicine [address] [place] [address] Humberto Holley DO [address] [place] [address] documented as of this encounter Visit Diagnoses Not on filedocumented in this encounter Additional Health Concerns Assessment Noted Time PHQ-9 Depression Total Score: 7 03/23/20 22 11:56 AM EST documented as of this encounter Care Teams Electrical Construction Project Manager Relationship Specialty Start Date End Date Humberto Holley DO [address] [place] [address] PCP - General Family Medicine 07/08/18 documented as of this encounter
--- OUTSIDE RECORDS SUMMARY | 2024-10-10 11:32 | XMS_ITS | Clinical Summary ---
Author Organization [facility] Healthcare Address [address] [place] [address] Care Team Providers Care Harvest Manager Name Role Phone Humberto Holley MD Primary Care Provider [phone] Allergies Active Allergy Reactions Criticality Noted Date Comments Morphine Other,Shortness of breath High 07/08/2010 Other Reaction(s): breathing issues/itching, Not available, Other (See Comments) Other reaction(s): Bradypnea (slow breathing rate) Other reaction(s): Bradypnea (slow breathing rate) bradycardia Medications Eliquis 5 MG tablet Take 5 mg by mouth in the morning and 5 mg before bedtime. 07/29/2015 Active hydroCHLOROthia zide (HYDRODiuril) 25 MG tablet Take 25 mg by mouth Daily 03/30/2018 Active lovastatin (Mevacor) 10 MG tablet Take 10 mg by mouth Daily 03/30/2018 Active olmesartan (BENIcar) 40 MG tablet Take 40 mg by mouth Daily 03/30/2016 Active Active Problems No known active problems Encounters Date Type Department Care Team Description 09/26/2024 2:15 PM EDT Procedure Visit [facility] [address] [place] [address] Choco Ace DPM Dermatophytosis of nail (Primary Dx); Dystrophic nail; Pain around toenail, right foot; Pain around toenail, left foot 09/26/2024 Bamboo flowsheet [facility] [address] [place] [address] Choco Ace DPM 09/26/2024 Travel 09/23/2024 Travel from Last 3 Months Immunizations Immunization Administration Dates Next Due Influenza, High Dose Seasona l, Preservative Free 01/26/2024 Influenza, Seasonal, Quadriv alent, Adjuvanted 01/20/2023,01/21/2022,12/02/2020 Influenza, Unspecified 04/08/2017 Influenza, injectable, MDCK, preservative free, quadrivalent 01/18/2019,04/26/2018,03/13/2017 Influenza, injectable, quadr ivalent, preservative free 12/15/2019 Pfizer Purple Cap SARS-CoV-2 Vaccination 021 Pneumococcal Conjugate PCV 13 07/11/2014 Pneumococcal Polysaccharide PPSV23 08/28/2016 Tdap 10/20/2023,09/01/2021,02/16/2012 Zoster, Recombinant 03/26/2019,01/18/2019 Family History Medical History Relation Name Comments Early natural Mother Kirk Bland Relation Name Status Comments Mother Kirk Bland Social History Tobacco Use Types Packs/Day Years [...] Sign Reading Time Taken Comments Blood Pressure 164/87 11/08/2018 12:00 PM EDT Pulse - - Temperature - - Respiratory Rate - - Oxygen Saturation - - Inhaled Oxygen Concentration - - Weight 122 kg (268 lb) 09/26/2024 2:10 PM EDT Height 180.3 cm (5' 11 ) 09/26/2024 2:10 PM EDT Body Mass Index 37.38 09/26/2024 2:10 PM EDT Plan of Treatment Upcoming Encounters Date Type Department Care Team (Late st Contact Info) Description 01/09/2025 2:15 PM EDT Procedure Visit [facility] [address] [place] [address] Choco Ace DPM [address] [place] [address] Health Maintenance Due Date Last Done Comments Influenza Vaccine (#1) 2024 4, 01/20/2023, 01/21/2022, Additional history exists Pneumococcal Vaccine: 65+ Years Completed 7, 07/11/2014 Insurance [employer] Care Teams Harvest Manager Relationship Specialty Start Date End Date Humberto Holley MD [address], [place] [address] PCP - General Family Medicine 09/26/24
--- OUTSIDE RECORDS SUMMARY | 2024-10-10 11:32 | XMS_ITS | Encounter Summary ---
Author Organization [facility] Address [address] [place] [address] Care Team Providers Care Welder Assistant Name Role Phone Humberto Holley MD Primary Care Provider [phone] Encounter Details Date Type Department Care Team (Latest Contact Info) Description 09/26/2024 Travel Social History Tobacco Use Types Packs/Day Years [...] 2:15 PM EDT Procedure Visit [facility] [address] [place] [address] Choco Ace, DPM [address] [place] [address] documented as of this encounter Visit Diagnoses Not on filedocumented in this encounter Care Teams Welder Assistant Relationship Specialty Start Date End Date Humberto Holley MD [address], [facility] [place] [address] PCP - General Family Medicine 09/26/24 documented as of this encounter
--- OUTSIDE RECORDS SUMMARY | 2024-10-10 11:32 | XMS_ITS | Encounter Summary ---
Author Organization [facility] tem Address [id number] [address] [place] [address] Care Team Providers Care Offline Editor Name Role Phone Humberto Holley DO Primary Care Provider [phone] Reason for Visit * Reason Comments Med Refill Encounter Details Date Type Department Care Team ([facility] Contact Info) Description 12/31/2021 Refill [facility] Internal Medicine - Family Medicine [address] [place] [address] Humberto Holley DO [address], [place] [address] Social History Tobacco Use Types Packs/Day Years [...] Upcoming Encounters Date Type Department Care Team ([facility] Contact Info) Description 10/11/2024 9:40 AM EDT Office Visit [facility] Medicine - Family Medicine [address] [place] [address] 02/27/2025 10:00 AM EST Office Visit [facility] Medicine - Family Medicine [address] [place] [address] Humberto Holley DO [address], [place] [address] documented as of this encounter Visit Diagnoses Not on filedocumented in this encounter Care Teams Offline Editor Relationship Specialty Start Date End Date Humberto Holley DO [address] [facility] [place] [address] PCP - General Family Medicine 07/08/18 documented as of this encounter
--- OUTSIDE RECORDS SUMMARY | 2024-10-10 11:32 | XMS_ITS | Encounter Summary ---
Author Organization [facility] Address [address] [facility] [place] [address] Care Team Providers Care Circuit Breaker Assembler Name Role Phone Humberto Holley MD Primary Care Provider [phone] Encounter Details Date Type Department Care Team ([facility] Contact Info) Description 09/26/2024 Bamboo flowsheet [facility] [address] [place] [address] Choco Ace DPM [address] [place], [place] [phone] Social History Tobacco Use Types Packs/Day Years [...] Encounters Date Type Department Care Team (Late Contact Info) Description 01/09/2025 2:15 PM EDT Procedure Visit [facility] [address] [place] [address] Choco Ace DPM [address] [place], [place] [phone] documented as of this encounter Visit Diagnoses Not on filedocumented in this encounter Care Teams Circuit Breaker Assembler Relationship Specialty Start Date End Date Furlong, Humberto G, MD [address] [facility], [place] [address] PCP - General Family Medicine 09/26/24 documented as of this encounter
[2024-10-10 11:35] VITALS: BP 139/70; PULSE 60; TEMP 37.2; O2SAT 97; BMI 33.9
--- NOTE | 2024-10-10 11:41 | XR_ITS ---
The [address] [address] Patient Name: MAURO WILL MRN: [id number] date: 1945 Sex: M Assigned Patient Location: ER Current Patient Location: Accession/Order Number: [id number] Exam Date: 10/10/2024 12:31 Report Date: 10/10/2024 12:38 At the request of: JAZMYN KUMARI MD Procedure: XR wrist RT min 3V CLINICAL DATA: Patient fell onto right hand and wrist last night. Pain medially. RIGHT HAND - 3 views COMPARISON: None AP, lateral and oblique views were obtained. There is no acute fracture or dislocation. Degenerative changes are present at the first through third metacarpal phalangeal joints and at the distal interphalangeal joint of the thumb. There are no significant soft tissue abnormalities. XR/XR hand RT min 3V IMPRESSION: DEGENERATIVE CHANGES. NO ACUTE BONY INJURY. RIGHT WRIST - 3 views COMPARISON: None AP, lateral and oblique views were obtained. There is no definite acute fracture or dislocation. There is a chronic-appearing bony ossicle adjacent to the radial styloid and possibly a second along the dorsum of the carpals on the lateral view. There is sclerosis at the lunate. There is widening of the scapholunate interval. Narrowing of the radiocarpal joint space is seen. There is mild dorsal soft tissue swelling. IMPRESSION: CHRONIC APPEARING CHANGES AT THE WRIST. NO DEFINITE ACUTE BONY INJURY. FOLLOW-UP IS RECOMMENDED, SYMPTOMS WARRANT. Impression dictated by: Maria Asif M.D. 10/10/2024 12:38 PM Dictation Location: [place] [address] Electronically authenticated by: [id number] Y Date: 10/10/2024 12:38
--- NOTE | 2024-10-10 11:41 | XR_ITS ---
The [address] [address] Patient Name: MAURO WILL MRN: [id number] date: 1945 Sex: M Assigned Patient Location: ER Current Patient Location: Accession/Order Number: [id number] Exam Date: 10/10/2024 12:31 Report Date: 10/10/2024 12:38 At the request of: JAZMYN KUMARI MD Procedure: XR wrist RT min 3V CLINICAL DATA: Patient fell onto right hand and wrist last night. Pain medially. RIGHT HAND - 3 views COMPARISON: None AP, lateral and oblique views were obtained. There is no acute fracture or dislocation. Degenerative changes are present at the first through third metacarpal phalangeal joints and at the distal interphalangeal joint of the thumb. There are no significant soft tissue abnormalities. XR/XR wrist RT min 3V IMPRESSION: DEGENERATIVE CHANGES. NO ACUTE BONY INJURY. RIGHT WRIST - 3 views COMPARISON: None AP, lateral and oblique views were obtained. There is no definite acute fracture or dislocation. There is a chronic-appearing bony ossicle adjacent to the radial styloid and possibly a second along the dorsum of the carpals on the lateral view. There is sclerosis at the lunate. There is widening of the scapholunate interval. Narrowing of the radiocarpal joint space is seen. There is mild dorsal soft tissue swelling. IMPRESSION: CHRONIC APPEARING CHANGES AT THE WRIST. NO DEFINITE ACUTE BONY INJURY. FOLLOW-UP IS RECOMMENDED, SYMPTOMS WARRANT. Impression dictated by: Maria Asif M.D. 10/10/2024 12:38 PM Dictation Location: [place] [address] Electronically authenticated by: [id number] Y Date: 10/10/2024 12:38
--- NOTE | 2024-10-10 11:51 | ED_ITS ---
HPI HPI - General Adult General Chief complaint: Fall Stated complaint: FALL ON 10/09/2024; R HAND INJURY/PAIN, L KNEE KAYLENE Time Seen by Provider: 10/10/24 11:35 Source: patient Mode of arrival: walk-in Limitations: no limitations Related Data Home Medications ?Medication ?Instructions ?Recorded ?Confirmed apixaban 5 mg tablet (Eliquis) mg 10/10/24 hydrochlorothiazide 25 mg tablet mg 10/10/24 lovastatin 10 mg tablet mg 10/10/24 olmesartan 40 mg tablet mg 10/10/24 Allergies Allergy/AdvReac Type Severity Reaction Status Date / Time morphine Allergy Severe Anaphylaxis Verified 10/10/24 11:34 PFSH PFSH Social History Little interest or pleasure in doing things: not at all Feeling down, depressed, or hopeless: not at all Exam Constitutional Vital Signs, click to edit/add: Last Vital Signs Temp 99.0 F 10/10/24 11:35 Pulse 60 10/10/24 11:35 Resp 18 10/10/24 11:35 BP 139/70 10/10/24 11:35 Pulse Ox 97 10/10/24 11:35 O2 Del Method Room Air 10/10/24 11:35 Course Vital Signs Vital signs: Vital Signs Temperature 99.0 F 10/10/24 11:35 Pulse Rate 60 10/10/24 11:35 Respiratory Rate 18 10/10/24 11:35 Blood Pressure 139/70 10/10/24 11:35 Pulse Oximetry 97 10/10/24 11:35 Oxygen Delivery Method Room Air 10/10/24 11:35 Temperature 99.0 F 10/10/24 11:35 Pulse Rate 60 10/10/24 11:35 Respiratory Rate 18 10/10/24 11:35 Blood Pressure 139/70 10/10/24 11:35 Pulse Oximetry 97 10/10/24 11:35 Oxygen Delivery Method Room Air 10/10/24 11:35 Medical Decision Making MDM Narrative Medical decision making narrative: X-rays are negative per radiologist. Erik wrap applied, application checked by me and found to be appropriate, he is neurovascularly intact. I suspect he may have ruptured his ganglion cyst. He has a follow-up appointment with his doctor tomorrow. Treatment diagnosis and follow-up were discussed with the patient. Differential Diagnosis Differential Diagnosis: Sprain, fracture Imaging Data Hand and wrist x-rays: Radiologist's impression: ITS Impressions Hand X-Ray 10/10/24 11:41 IMPRESSION: DEGENERATIVE CHANGES. NO ACUTE BONY INJURY. RIGHT WRIST - 3 views COMPARISON: None AP, lateral and oblique views were obtained. There is no definite acute fracture or dislocation. There is a chronic-appearing bony ossicle adjacent to the radial styloid and possibly a second along the dorsum of the carpals on the lateral view. There is sclerosis at the lunate. There is widening of the scapholunate interval. Narrowing of the radiocarpal joint space is seen. There is mild dorsal soft tissue swelling. IMPRESSION: CHRONIC APPEARING CHANGES AT THE WRIST. NO DEFINITE ACUTE BONY INJURY. FOLLOW-UP IS RECOMMENDED, SYMPTOMS WARRANT. Impression dictated by: Maria Asif M.D. 10/10/2024 12:38 PM Dictation Location: [employer] Electronically authenticated by: [id number] Y Date: 10/10/2024 12:38 Wrist X-Ray 10/10/24 11:41 IMPRESSION: DEGENERATIVE CHANGES. NO ACUTE BONY INJURY. RIGHT WRIST - 3 views COMPARISON: None AP, lateral and oblique views were obtained. There is no definite acute fracture or dislocation. There is a chronic-appearing bony ossicle adjacent to the radial styloid and possibly a second along the dorsum of the carpals on the lateral view. There is sclerosis at the lunate. There is widening of the scapholunate interval. Narrowing of the radiocarpal joint space is seen. There is mild dorsal soft tissue swelling. IMPRESSION: CHRONIC APPEARING CHANGES AT THE WRIST. NO DEFINITE ACUTE BONY INJURY. FOLLOW-UP IS RECOMMENDED, SYMPTOMS WARRANT. Impression dictated by: Maria Asif M.D. 10/10/2024 12:38 PM Dictation Location: [employer] Electronically authenticated by: [id number] Y Date: 10/10/2024 12:38 Discharge Plan Discharge Chief Complaint: Fall Clinical Impression: Right wrist pain Patient Disposition: Home, Self-Care Time of Disposition Decision: 12:53 Condition: Good Mode of Transportation: Private Vehicle Prescriptions / Home Meds: No Action lovastatin 10 mg tablet hydrochlorothiazide 25 mg tablet olmesartan 40 mg tablet Eliquis 5 mg tablet Print Language: Bruneian Instructions: Wrist Injury (ED) Additional Instructions: Use ice and elevate Referrals: FURLOLAXMI,KAVEH G [Primary Care Provider, Family Practice] - 1 week
--- NOTE | 2024-10-10 13:07 | PC.NURSE ---
clean dry dressing applied to left knee, verito bandage applied to right hand and wrist area, pms intact pre and post verito application, pt tolerated well
== END 2024-10-10 13:08 | disposition home or self-care (01) ==
PROVIDERS: Emergency Provider Emergency Medicine; PCP Family Medicine
DX: M25.531 Pain in right wrist (principal)
CPT/HCPCS: 73110; 73130; 99283